=== PATIENT | female | born 1975 | race African-American/Black ===

== ENCOUNTER 2016-10-31 17:22 | Emergency (ER) | payer OTHER ==
[~2016-10-31] VITALS: Ht 149.9 cm; Wt 106.1 kg
[~2016-10-31 17:22] MED LIST: ACET325T9 PO; ARIP10TA13 PO; CLON0.1T12 TD; LISI10TA2 PO
[2016-10-31 17:46] VITALS: BP 118/64
--- NOTE | 2016-10-31 18:36 | PHYS DOC ---
Past Medical History Past Medical History: Bipolar, Diabetes-Type II, Hypertension, Migraines, Other Additional Past Medical Histor: Back pain Past Surgical History: Tubal ligation, Other Additional Past Surgical Histo: D&C Alcohol Use: None Drug Use: None Adult General Chief Complaint Chief Complaint: ABDOMINAL PAIN HPI HPI Patient is a 41 year old female who presents with 1.5 weeks of myalgia, gradual onset headaches, rhinorrhea, n/v, and f/c. No emesis today. Has not taken any OTC meds. Denies sick contacts, cough, dyspnea, chest pain, abdominal pain, diarrhea, dysuria. Review of Systems Review of Systems Constitutional: Has fever or chills [] Eyes: Denies change in visual acuity, redness, or eye pain [] HENT: Denies nasal congestion or sore throat [] Respiratory: Denies cough or shortness of breath [] Cardiovascular: No additional information not addressed in HPI [] GI: Denies abdominal pain, bloody stools or diarrhea [] : Denies dysuria or hematuria [] Musculoskeletal: Denies back pain or joint pain [] Integument: Denies rash or skin lesions [] Neurologic: Denies headache, focal weakness or sensory changes [] Endocrine: Denies polyuria or polydipsia [] Current Medications Current Medications Current Medications Medications (Trade) Dose Ordered Sig/Tito Start Time Stop Time Status Last Admin Dose Admin Ibuprofen (Motrin) 400 mg 1X ONCE 10/31/16 18:45 10/31/16 18:46 DC 10/31/16 18:50 400 MG Allergies Allergies Allergies Coded Allergies Type Severity Reaction Last Updated Verified No Known Drug Allergies 10/31/16 No Physical Exam Physical Exam Constitutional: Well developed, well nourished, no acute distress, non-toxic appearance. [] HENT: Normocephalic, atraumatic, bilateral external ears normal, oropharynx moist, no oral exudates, nose normal. [] Eyes: PERRLA, EOMI, conjunctiva normal, no discharge. [] Neck: Normal range of motion, no tenderness, supple. [] Cardiovascular:Heart rate regular rhythm [] Lungs & Thorax: Bilateral breath sounds clear to auscultation [] Abdomen: Bowel sounds normal, soft, no tenderness. [] Skin: Warm, dry, no erythema, no rash. [] Back: Normal ROM. [] Extremities: No tenderness, ROM intact, no edema. [] Neurologic: Alert and oriented X 3, normal motor function, normal sensory function, no focal deficits noted, cranial nerves II through XII intact. [] Psychologic: Affect normal, judgement normal, mood normal. [] Current Patient Data Vital Signs Vital Signs Date Time Temp Pulse Resp B/P Pulse Ox O2 Delivery O2 Flow Rate FiO2 10/31/16 17:46 98.5 91 20 118/64 97 Room Air 98.5 Course & Med Decision Making Course & Med Decision Making Discussed supportive care for likely viral upper respiratory infection. Return precautions given. She understands and agrees with plan. Dragon Disclaimer Dragon Disclaimer This electronic medical record was generated, in whole or in part, using a voice recognition dictation system. Departure Departure Impression: Primary Impression: Headache Additional Impression: Viral upper respiratory infection Disposition: HOME, SELF-CARE Condition: STABLE Referrals: NO PCP (PCP) Patient Instructions: Influenza, Adult, [id number] Additional Instructions: You likely have a flu-like illness. Drink liquids to stay hydrated. Take Tylenol or ibuprofen as needed for pain. Follow-up with your primary care doctor. Return for any concerns. Problem Qualifiers Primary Impression: Headache Headache type: unspecified Headache chronicity pattern: acute headache Intractability: not intractable Qualified Code: R51 - Headache William FELTON MD Oct 31, 2016 18:36
[2016-10-31] MEDS ORDERED: IBUPROFEN 400 MG TABLET. PO ONE (18:45)
== END 2016-10-31 18:51 | disposition home or self-care (01) ==
LOC: ER 17:22
DX: R51 Headache (principal); J06.9 Acute upper respiratory infection, unspecified; M79.1 Myalgia; I10 Essential (primary) hypertension; E11.9 Type 2 diabetes mellitus without complications; G43.909 Migraine, unspecified, not intractable, without status migrainosus; F31.9 Bipolar disorder, unspecified; Z98.51 Tubal ligation status
CPT/HCPCS: 99282

== ENCOUNTER 2017-04-24 09:16 | Emergency (ER) | payer OTHER ==
[~2017-04-24] VITALS: Ht 149.9 cm; Wt 106.1 kg
[~2017-04-24 09:16] MED LIST changes: -ARIP10TA13 PO; +ARIP10TA9 PO
[2017-04-24] MEDS ORDERED: IBUP-1060 PO (09:47)
--- NOTE | 2017-04-24 09:48 | PHYS DOC ---
Past Medical History Past Medical History: Bipolar, Diabetes-Type II, Hypertension, Migraines, Other Additional Past Medical Histor: Back pain Past Surgical History: Tubal ligation, Other Additional Past Surgical Histo: D&C Alcohol Use: None Drug Use: None Adult General Chief Complaint Chief Complaint: LOWER EXT PAIN [facility] HPI Patient is a 42 year old female presents to the emergency department stating she has been falling. She is unable to tell me when her last time she fell occurred. Patient states she has right lower back pain that radiates to the lower leg. Patient states she her BP is elevated however she has not taken her BP medications. Patient is requesting morphine injection for her pain. She denies numbness or tingling in her lower extremities. She is able to walk with a good steady gait. Patient also C/o eye site problems for the last 3 years, no change with eye sight today. Review of Systems Review of Systems Constitutional: Denies fever or chills [] Eyes: Denies change in visual acuity, redness, or eye pain [] HENT: Denies nasal congestion or sore throat [] Respiratory: Denies cough or shortness of breath [] Cardiovascular: No additional information not addressed in HPI [] GI: Denies abdominal pain, nausea, vomiting, bloody stools or diarrhea [] : Denies dysuria or hematuria [] Musculoskeletal: c/o right lower back pain with radiation to the lower leg Integument: Denies rash or skin lesions [] Neurologic: Denies headache, focal weakness or sensory changes [] Endocrine: Denies polyuria or polydipsia [] Current Medications Current Medications Current Medications Medications (Trade) Dose Ordered Sig/[facility] Start Time Stop Time Status Last Admin Dose Admin Ketorolac Tromethamine (Toradol Im) 60 mg 1X ONCE 04/24/17 10:00 04/24/17 10:01 DC 04/24/17 09:49 60 MG Allergies Allergies Allergies Coded Allergies Type Severity Reaction Last Updated Verified No Known Drug Allergies 10/31/16 No Physical Exam Physical Exam Constitutional: Well developed, well nourished, no acute distress, non-toxic appearance. [] HENT: Normocephalic, atraumatic, bilateral external ears normal, oropharynx moist, no oral exudates, nose normal. [] Eyes: PERRLA, EOMI, conjunctiva normal, no discharge. [] Neck: Normal range of motion, no tenderness, supple, no stridor. [] Cardiovascular:Heart rate regular rhythm, no murmur [] Lungs & Thorax: Bilateral breath sounds clear to auscultation [] Skin: Warm, dry, no erythema, no rash. [] Back: right lower back tenderness Extremities: No tenderness, no cyanosis, no clubbing, ROM intact, no edema. Patient with full ROM of the right lower leg. Peripheral pulses 2+ cap refill brisk < 2 seconds. Good sensation noted. Neurologic: Alert and oriented X 3, normal motor function, normal sensory function, no focal deficits noted. [] Psychologic: Affect normal, judgement normal, mood normal. [] Current Patient Data Vital Signs Vital Signs Date Time Temp Pulse Resp B/P (MAP) Pulse Ox O2 Delivery O2 Flow Rate FiO2 04/24/17 09:55 192/106 (134) 04/24/17 09:20 99.0 96 18 98 Room Air 99.0 EKG EKG [] Radiology/Procedures Radiology/Procedures [] Course & Med Decision Making Course & Med Decision Making Pertinent Labs and Imaging studies reviewed. (See chart for details) Patient will be provided with toradol here in the emergency department. She had taken her BP medication here in the emergency department. Patient will be discharged home in stable condition. Signs and symptoms to return to the emergency department has been provided. Patient agrees with discharge instructions, treatment regimen and followup recommendations. All questions and concerns have been answered at patient bedside. Patient will be discharged home with prescription for Ibuprofen. Patient was instructed to take her blood pressure as prescribed. [] I did not see or treat this patient. I was available for consultation. I am signing this note administratively. Dragon Disclaimer Dragon Disclaimer This electronic medical record was generated, in whole or in part, using a voice recognition dictation system. Departure Departure Impression: Primary Impression: Back pain with sciatica Disposition: HOME, SELF-CARE Condition: STABLE Referrals: NO PCP (PCP) Patient Instructions: Sciatica with Rehab[facility], Sciatica, [id number] Additional Instructions: Activity as tolerated Medication as prescribed Ice packs on 20 minutes and off 20 minutes several times a day Monitor your blood pressure and take your medications as prescribed Followup with your primary care provider in 3-5 days Return to emergency department as needed for signs and symptoms that become worse. Scripts Ibuprofen (IBUPROFEN) 800 Mg Tablet 800 MG PO PRN Q6HRS Y for INFLAMMATION, #30 TAB Prov: ROSE MARIE ALVAREZ APRN 04/24/17 ROSE MARIE ALVAREZ APRN Apr 24, 2017 09:48 ROSY LAUGHLIN MD Apr 25, 2017 07:55
[2017-04-24 09:55] VITALS: BP 192/106
[2017-04-24] MEDS ORDERED: KETOROLAC 60 MG/2 ML INJ. IM ONE (10:00)
== END 2017-04-24 10:20 | disposition home or self-care (01) ==
LOC: ER 09:16
DX: M54.41 Lumbago with sciatica, right side (principal); E11.9 Type 2 diabetes mellitus without complications; I10 Essential (primary) hypertension; F31.9 Bipolar disorder, unspecified; G43.909 Migraine, unspecified, not intractable, without status migrainosus; Z98.51 Tubal ligation status
CPT/HCPCS: 96372; 99283; J1885

== ENCOUNTER 2017-08-20 13:58 | Emergency (ER) | payer OTHER ==
[2017-08-20 14:34] LABS: URINE HCG POC HCG NEGATIVE (Negative)
[2017-08-20 14:46] LABS: ADD MAN DIFF? NO
[2017-08-20 14:50] LABS: BASO % 1 % (0-3); EOS % 1 % (0-3); HEMATOCRIT 39.1 % (36.0-47.0); HEMOGLOBIN 12.6 g/dL (12.0-15.5); LYMPH # 1.1 x10^3/uL (1.0-4.8); LYMPH % 29 % (24-48); MEAN CORPUSCULAR HEMOGLOBIN 28 pg (25-35); MEAN CORPUSCULAR HGB CONC 32 g/dL (31-37); MEAN CORPUSCULAR VOLUME 87 fL (79-100); MONO # 0.5 x10^3/uL (0.0-1.1); MONO % 12 % (0-9); NEUT # 2.2 x10^3uL (1.8-7.7); NEUT % 58 % (31-73); PLATELET COUNT 333 x10^3/uL (140-400); RED BLOOD COUNT 4.49 x10^6/uL (3.50-5.40); RED CELL DISTRIBUTION WIDTH 16.9 % (11.5-14.5); WHITE BLOOD COUNT 3.8 x10^3/uL (4.0-11.0)
[2017-08-20 15:01] LABS: ANION GAP 8 (6-14); BLOOD UREA NITROGEN 13 mg/dL (7-20); BUN/CREATININE RATIO 13 (6-20); CALCIUM 8.4 mg/dL (8.5-10.1); CARBON DIOXIDE 28 mmol/L (21-32); CHLORIDE 103 mmol/L (98-107); GFR 74.3; GLUCOSE 114 mg/dL (70-99); POTASSIUM 3.4 mmol/L (3.5-5.1); SODIUM 139 mmol/L (136-145)
[2017-08-20] MEDS: ONDANSETRON PF 4 MG/2 ML VIAL. IV (15:04)
[2017-08-20] MEDS: IV NORMAL SALINE 1000ML BAG 1,000 ML IV (15:04)
[2017-08-20] MEDS: fentaNYL PF VIAL 100 MCG/2 ML VIAL IV (15:05)
[2017-08-20 15:07] LABS: ALBUMIN 3.4 g/dL (3.4-5.0); ALBUMIN/GLOBULIN RATIO 0.8 (1.0-1.7); ALK PHOS 75 U/L (46-116); ALT (SGPT) 19 U/L (14-59); AST (SGOT) 17 U/L (15-37); LIPASE 111 U/L (73-393); MAGNESIUM 1.8 mg/dL (1.8-2.4); TOTAL BILIRUBIN 0.4 mg/dL (0.2-1.0); TOTAL PROTEIN 7.7 g/dL (6.4-8.2)
[2017-08-20] MEDS ORDERED: CONTRAST GIVEN MC (15:30)
[2017-08-20] MEDS: IOHEXOL 300 MG/ML 100ML VIAL. IV (15:35)
[2017-08-20] MEDS: POTASSIUM CHLORIDE 20 MEQ TABLET.ER. PO (16:42)
== END 2017-08-20 16:48 | disposition home or self-care (01) ==
LOC: ER 13:58
DX: R10.84 Generalized abdominal pain (principal); R11.2 Nausea with vomiting, unspecified; R19.7 Diarrhea, unspecified; E87.6 Hypokalemia; F20.9 Schizophrenia, unspecified; G43.909 Migraine, unspecified, not intractable, without status migrainosus; I10 Essential (primary) hypertension; F31.9 Bipolar disorder, unspecified; E11.9 Type 2 diabetes mellitus without complications; Z98.51 Tubal ligation status; F12.10 Cannabis abuse, uncomplicated
CPT/HCPCS: 74177; 80053; 81025; 83690; 83735; 85025; 96361; 96374; 96375; 99285-25; J2405; J3010; J7030; Q9967